=== PATIENT | female | born 2000 | race Caucasian/White ===

== ENCOUNTER 2024-05-22 06:28 | Emergency (ER) | payer OTHER ==
--- OUTSIDE RECORDS SUMMARY | 2024-05-22 06:30 | XMS REPORT | Continuity of Care Document ---
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 Name Role Phone [email or web address]_Kadiyala_S Attending Clinician Unavaila ble [email or web address]_Kadiyala_S Admitting Clinician Unavaila ble Social History Smoking Status Start Date Stop Date Source [facility] Vital Signs Vital Name Observation Time Observation Value Comments S ource BP Systolic 2024-01-31 00:00:00 126 mm[Hg] [facility] BP Diastolic 2024-01-31 00:00:00 72 mm[Hg] [facility] BMI (Body Mass Index) 2024-01-31 00:00:00 21.9 kg/m2 [facility] Body Weight 2024-01-31 00:00:00 131.4 [lb_av] [facility] Height 2024-01-31 00:00:00 65 [in_i] [facility] Encounters Start Date/Time End Date/Time Encounter Type Admission Type Attending Clinicians Care Facility Care Department Encounter ID Source 2024-01-31 00:00:00 2024-01-31 00:00:00 GEORGE HernandezP: [address], [place] [address] , Ph. [facility] - GC_GCBZW_Martha [facility]* [id number] [facility] 2023-05-29 00:00:00 2023-05-29 00:00:00 Outpatient GC_GCBZW_Ka diyala_S [facility] [id number] [facility]
[2024-05-22 07:05] LABS: Absolute Eosinophils 0.4 K/uL (0-0.5); Absolute Lymphocytes (CBC) 2.2 K/uL (0.7-4.9); Absolute Monocytes 0.6 K/uL (0.1-1.3); Absolute Neutrophil 4.9 K/uL (1.8-8.0); Basophils % 0.3 % (0-1.3); Eosinophils % 5.5 % (0-4.4); Hematocrit 40.2 % (36.0-45.0); Hemoglobin 13.7 g/dL (12.0-15.0); MCH 30.9 pg (27.0-35.0); MPV 7.6 fL (7.6-11.3); Monocytes % 7.1 % (3.3-12.3); Neutrophils % 60.1 % (41.7-73.7); Platelets 234 thou/uL (152-406); RBC Red Blood Cell Count 4.42 M/uL (3.86-4.86); Red Cell Distribution Width 12.6 % (12.1-15.2)
[2024-05-22 07:20] LABS: Anion Gap 6.2 mEq/L (5.0-15.0); BUN Blood Urea Nitrogen 12 mg/dL (7-18); Bicarbonate 28 mEq/L (21-32); Glomerular Filtration Rate 135 ml/min (=/>90); Glucose Level 96 mg/dL (74-106); Potassium 3.2 mEq/L (3.5-5.1); Sodium Level 138 mEq/L (136-145)
[2024-05-22 07:21] LABS: Troponin High Sensitivity < 3.0 pg/mL (<58.9)
--- NOTE | 2024-05-22 08:04 | RAD REPORT ---
EXAMINATION: ONE VIEW CHEST XR CLINICAL INDICATION: Female, 24 years old.,CHEST PAIN TECHNIQUE: Frontal chest projection is submitted. Examination is limited by patient positioning and t echnique. COMPARISON: No prior exam. FINDINGS: The lungs are well inflated and clear. No pneumothorax or sizable effusion. The heart is normal in s ize. IMPRESSION: No acute intrathoracic abnormalities.
--- NOTE | 2024-05-22 08:26 | ER ---
Nurse's Notes [facility] Name: Mojgan Meza Age: 24 yrs Sex: Female : 2000 Arrival Date: 05/22/2024 Time: 06:28 Bed 4 Private MD: Diagnosis: Chest pain, unspecified;Paresthesia of skin;Hypokalemia Presentation: 05/22 06:43 Chief complaint: Patient states: states she was at work sitting and started to al5 experience sharp right sided chest pain along with R arm shooting pain, numbness, and tingling. Coronavirus screen: At this time, the client does not indicate any symptoms associated with coronavirus-19. Ebola Screen: No symptoms or risks identified at this time. Initial Sepsis Screen: Does the patient meet any 2 criteria? No. Patient's initial sepsis screen is negative. Does the patient have a suspected source of infection? No. Patient's initial sepsis screen is negative. Risk Assessment: Do you want to hurt yourself or someone else? Patient reports no desire to harm self or others. Onset of symptoms was May 22, 2024. 06:43 Method Of Arrival: Ambulatory al5 06:43 Acuity: FRANCES 2 al5 Triage Assessment: 06:45 General: Appears in no apparent distress. Behavior is calm, cooperative. Pain: al5 Complains of pain in anterior aspect of right upper chest and right breast Pain radiates to right arm Pain currently is 7 out of 10 on a pain scale. EENT: No signs and/or symptoms were reported regarding the EENT system. Neuro: Level of Consciousness is awake, alert, obeys commands, Oriented to person, place, time, situation. Cardiovascular: Capillary refill < 3 seconds Patient's skin is warm and dry. Cardiovascular: Reports chest pain, Rhythm is sinus rhythm. Respiratory: Airway is patent Respiratory effort is even, unlabored, Respiratory pattern is regular, symmetrical. GI: No signs and/or symptoms were reported involving the gastrointestinal system. : No signs and/or symptoms were reported regarding the genitourinary system. Derm: Skin is intact, Skin is pink, warm \T\ dry. normal. Musculoskeletal: No signs and/or symptoms reported regarding the musculoskeletal system. Historical: - Allergies: 06:45 No Known Allergies; al5 - PMHx: 06:45 None; al5 - PSHx: 06:45 Myringotomy and insertion of tympanic ventilation tube; Adenoid excision; al5 - Immunization history:: Adult Immunizations up to date. - Infectious Disease History:: Denies. - Social history:: Smoking status: Reported history of juuling and/or vaping. Screenin:47 [facility] ED Fall Risk Assessment (Adult) History of falling in the last 3 months, al5 including since admission No falls in past 3 months (0 pts) Confusion or Disorientation No (0 pts) Intoxicated or Sedated No (0 pts) Impaired Gait No (0 pts) Mobility Assist Device Used No (0 pt) Altered Elimination No (0 pt) Score/Fall Risk Level 0 - 2 = Low Risk Oriented to surroundings, Maintained a safe environment, Hourly rounding (assess needs \T\ fall precautionary measures) done. Abuse screen: Denies threats or abuse. Denies injuries from another. Nutritional screening: No deficits noted. Tuberculosis screening: No symptoms or risk factors identified. Assessment: 06:46 Reassessment: see triage assessment. Pain: Pain began 1 hour ago. al5 07:19 Reassessment: Patient appears in no apparent distress at this time. No changes from kc6 previously documented assessment. Patient and/or family updated on plan of care and expected duration. Pain level reassessed. Patient is alert, oriented x 3, equal unlabored respirations, skin warm/dry/pink. 08:11 Reassessment: Patient appears in no apparent distress at this time. No changes from kc6 previously documented assessment. Patient and/or family updated on plan of care and expected duration. Pain level reassessed. Patient is alert, oriented x 3, equal unlabored respirations, skin warm/dry/pink. Vital Signs: 06:43 BP 132 / 91; Pulse 60; Resp 16; Temp 98.1; Pulse Ox 100% on R/A; Weight 60.78 kg; al5 Height 5 ft. 5 in. ; Pain 7/10; 07:19 BP 108 / 70; Pulse 66; Resp 16 S; Pulse Ox 100% on R/A; kc6 08:11 BP 98 / 64; Pulse 69; Resp 18 S; Pulse Ox 98% on R/A; kc6 06:43 Body Mass Index 22.30 (60.78 kg, 165.1 cm) al5 06:43 Pain Scale: Adult al5 ED Course: 06:32 Patient arrived in ED. jj6 06:33 Juventino Barros DO is Attending Physician. ms3 06:45 Triage completed. al5 06:46 Arm band placed on right wrist. Patient placed in the treatment room, on a stretcher. al5 EKG completed in triage. Results shown to MD. 06:47 Willa Grissom, FARRUKH is Primary Nurse. al5 06:47 Patient has correct armband on for positive identification. Bed in low position. Call al5 light in reach. Side rails up X 1. Provided Education on: plan of care. Client placed on continuous cardiac and pulse oximetry monitoring. NIBP monitoring applied. resp therapist on. 06:47 No provider procedures requiring assistance completed. Patient maintains SpO2 al5 saturation greater than 95% on room air. 06:59 Attending Physician role handed off by Juventino Barros DO rt 06:59 Elmer Adams MD is Attending Physician. rt 07:00 Report received from FARRUKH Crouch. kc6 07:00 Door closed. Noise minimized. Lights dimmed. Warm blanket given. Pillow given. kc6 07:02 XRAY Chest (1 view) In Process Unspecified. EDMS 08:46 IV discontinued, intact, bleeding controlled, No redness/swelling at site. Pressure kc6 dressing applied. Administered Medications: 08:46 Drug: Potassium PO Effervescent Tablet 50 mEq PO once; dissolve in 4 ounces of water or kc6 juice Route: PO; Medication: 06:47 VIS not applicable for this client. al5 Outcome: 08:25 Discharge ordered by MD. rt 08:46 Discharged to home ambulatory, with family, kc6 08:46 Condition: good 08:46 Discharge instructions given to patient, Instructed on discharge instructions, follow up and referral plans. Demonstrated understanding of instructions, follow-up care, 08:46 Patient left the ED. kc6 Signatures: Dispatcher [employer] EDMS Juventino Barros DO DO ms3 Gillian Mercado jj6 Sharri Dacosta RN RN kc6 Elmer Adams MD MD rt Willa Grissom RN RN al5
--- NOTE | 2024-05-22 08:26 | EDPHYS ---
Physician Documentation [facility] Name: Mojgan Meza Age: 24 yrs Sex: Female : 2000 Arrival Date: 05/22/2024 Time: 06:28 Bed 4 Private MD: ED Physician Elmer Adams HPI: 05/22 06:48 This 24 yrs old Female presents to ER via Ambulatory with complaints of Chest Pain, ms3 Numbness Of Arm. 06:48 24-year-old female with no past medical history presents to the emergency department ms3 for right sharp chest pain that began while at work this morning. Patient states the pain then traveled to her right arm. Patient states she is having right arm tingling. She rates her pain a 7/10. Patient denies nausea, vomiting, shortness of breath. She denies any alleviating or inciting factors.. Historical: - Allergies: 06:45 No Known Allergies; al5 - PMHx: 06:45 None; al5 - PSHx: 06:45 Myringotomy and insertion of tympanic ventilation tube; Adenoid excision; al5 - Immunization history:: Adult Immunizations up to date. - Infectious Disease History:: Denies. - Social history:: Smoking status: Reported history of juuling and/or vaping. ROS: 06:48 Constitutional: Negative for fever, and chills. ms3 06:48 Respiratory: Negative for shortness of breath, cough, wheezing, and pleuritic chest pain, Abdomen/GI: Negative for abdominal pain, nausea, vomiting, diarrhea, and constipation, 06:48 Cardiovascular: Positive for chest pain, 06:48 MS/extremity: Positive for pain, paresthesias, of the right arm, Exam: 06:48 Constitutional: This is a well developed, well nourished patient who is awake, alert, ms3 and in no acute distress. Chest/axilla: Normal chest wall appearance and motion. Nontender with no deformity. Cardiovascular: Regular rate and rhythm with a normal S1 and S2. No gallops, murmurs, or rubs. Normal PMI, no JVD. No pulse deficits. Respiratory: Lungs have equal breath sounds bilaterally, clear to auscultation and percussion. No rales, rhonchi or wheezes noted. No increased work of breathing, no retractions or nasal flaring. Abdomen/GI: Soft, non-tender, with normal bowel sounds. No distension or tympany. No guarding or rebound. No evidence of tenderness throughout. Skin: Warm, dry with normal turgor. Normal color with no rashes, no lesions, and no evidence of cellulitis. MS/ Extremity: Pulses equal, no cyanosis. Neurovascular intact. Full, normal range of motion. 06:48 ECG was reviewed by the Attending Physician. ms3 Vital Signs: 06:43 BP 132 / 91; Pulse 60; Resp 16; Temp 98.1; Pulse Ox 100% on R/A; Weight 60.78 kg; al5 Height 5 ft. 5 in. ; Pain 7/10; 07:19 BP 108 / 70; Pulse 66; Resp 16 S; Pulse Ox 100% on R/A; kc6 08:11 BP 98 / 64; Pulse 69; Resp 18 S; Pulse Ox 98% on R/A; kc6 06:43 Body Mass Index 22.30 (60.78 kg, 165.1 cm) al5 06:43 Pain Scale: Adult al5 MDM: 06:44 Medical Screening Exam initiated ms3 06:48 Differential diagnosis: abnormal EKG, pneumothorax, Paresthesias versus electrolyte ms3 abnormality. 06:59 Transition of care: After a detail discussion of the patient's case, care is ms3 transferred to Elmer Adams MD. 08:27 HEART Score: History: Slightly Suspicious (0), ECG: Normal (0), Age: < or = 45 years rt (0), Risk Factors: No Risk Factors Known (0), Troponin: < or = 1 x Normal Limit (0), Total Score = 0. Data reviewed: vital signs, nurses notes, lab test result(s), EKG, radiologic studies. Consideration of Admission/Observation Escalation of care including admission/observation considered. Low heart score, very low suspicion for acute coronary syndrome, CVA, TIA. Patient does not require admission at this time. Patient stable for outpatient care with PCP, return precautions discussed.. I considered the following discharge prescriptions or medication management in the emergency department Medications were administered in the Emergency Department. See MAR. Independent interpretation of the following test(s) in the Emergency Department X-Ray: My interpretation is No edema seen on my interpretation of x-ray images. Test considered but Not performed: CT: Patient has no focal neurologic deficits, no risk factors for acute CVA, believe risk is low for acute CVA clinically, do not believe that advanced neuroimaging is indicated at this time.. Counseling: I had a detailed discussion with the patient and/or guardian regarding the historical points, exam findings, and any diagnostic results supporting the discharge/admit diagnosis, lab results, radiology results, the need for outpatient follow up, to return to the emergency department if symptoms worsen or persist or if there are any questions or concerns that arise at home. Response to treatment: the patient's symptoms have mildly improved after treatment. 05/22 06:43 Order name: Basic Metabolic Panel; Complete Time: 07:22 ms3 05/22 06:43 Order name: CBC with Diff; Complete Time: 07:21 ms3 05/22 06:43 Order name: Troponin HS; Complete Time: 07:22 ms3 05/22 06:43 Order name: XRAY Chest (1 view); Complete Time: 08:09 ms3 05/22 06:43 Order name: EKG; Complete Time: 06:44 ms3 05/22 06:43 Order name: Cardiac monitoring; Complete Time: 07:05 ms3 05/22 06:43 Order name: EKG - Nurse/Tech; Complete Time: 06:47 ms3 05/22 06:43 Order name: IV Saline Lock; Complete Time: 07:05 ms3 05/22 06:43 Order name: Labs collected and sent; Complete Time: 07:05 ms3 05/22 06:43 Order name: O2 Per Protocol; Complete Time: 06:48 ms3 05/22 06:43 Order name: O2 Sat Monitoring; Complete Time: 06:48 ms3 EC:48 Rate is 69 beats/min. Rhythm is regular. QRS [place] is Normal. [place] interval is normal. QRS ms3 interval is normal. Clinical impression: Normal ECG. Interpreted by me. Reviewed by me. Administered Medications: 08:46 Drug: Potassium PO Effervescent Tablet 50 mEq PO once; dissolve in 4 ounces of water or kc6 juice Route: PO; Disposition Summary: 05/22/24 08:25 Discharge Ordered Notes: Location: Home rt Problem: new rt Symptoms: have improved rt Condition: Stable rt Diagnosis - Chest pain, unspecified rt - Paresthesia of skin rt - Hypokalemia rt Followup: rt - With: Private Physician - When: 2 - 3 days - Reason: Discharge Instructions: - Discharge Summary Sheet rt - Nonspecific Chest Pain, Adult rt - Potassium Content of Foods rt - Paresthesia rt Forms: - Medication Reconciliation Form rt - Antibiotic Education rt - Prescription Opioid Use rt - Patient Portal Instructions rt - Leadership Thank You Letter rt Signatures: Dispatcher [employer] EDMS Barros Juventino DO ms3 Sharri Dacosta RN RN kc6 Elmer Adams MD MD rt Willa Grissom RN RN al5 Corrections: (The following items were deleted from the chart) 06:44 06:44 BASIC METABOLIC PANEL+C.LAB.BRZ ordered. EDMS EDMS 06:44 06:44 CBC+H.LAB.BRZ ordered. EDMS EDMS 06:44 06:44 Troponin High Sensitivity+C.LAB.BRZ ordered. EDMS EDMS
[2024-05-22] MEDS ORDERED: POTASSIUM 25 MEQ EFFERV TAB ONE (08:41)
[2024-05-22 10:38] VITALS: TEMP 98.1
[2024-05-22 10:40] VITALS: BP 98/64; O2SAT 98
--- NOTE | 2024-05-23 12:54 | EKG ---
Test Date: 2024-05-22 Test Time: 06:39:31 Production Superintendent: JESU MEASUREMENT RESULTS: Intervals: Rate: 69 OH: 150 QRSD: 76 QT: 384 QTc: 411 Ethel: P: 56 OH: 150 QRS: 56 T: 40 INTERPRETIVE STATEMENTS: Normal sinus rhythm Normal ECG Compared to ECG 11/04/2018 13:18:25 No significant changes Electronically Signed On 05-23-24 12:50:41 CDT by Ashish Arambula
== END 2024-05-22 08:46 | disposition home or self-care (01) ==
LOC: ER 06:28
DX: R07.9 Chest pain, unspecified (principal); R20.2 Paresthesia of skin; E87.6 Hypokalemia
CPT/HCPCS: 36415; 71045; 80048; 84484; 85025; 93005; 99284

== ENCOUNTER 2024-08-20 11:02 | Emergency (ER) | payer OTHER ==
--- OUTSIDE RECORDS SUMMARY | 2024-08-20 11:04 | XMS REPORT | Continuity of Care Document ---
Author Name Unknown Address [address] [place] [address] [address] th[address] Address [address] [place] [address] 495 [place] [address] Care Team Providers Care Senior Data Scientist Name Role Phone [email or web address]_Kadiyala_S Attending Clinician Unavaila ble [email or web address]_Kadiyala_S Admitting Clinician Unavaila ble Social History Smoking Status Start Date Stop Date Source Former Smoker [facility] Vital Signs Vital Name Observation Time Observation Value Comments S ource BP Systolic 2024-01-31 00:00:00 126 mm[Hg] [facility] BP Diastolic 2024-01-31 00:00:00 72 mm[Hg] [facility] BMI (Body Mass Index) 2024-01-31 00:00:00 21.9 kg/m2 [facility] Weight 2024-01-31 00:00:00 131.4 [lb_av] [facility] Height 2024-01-31 00:00:00 65 [in_i] [facility] Encounters Start Date/Time End Date/Time Encounter Type Admission Type Attending Clinicians Care Facility Care Department Encounter ID Source 2024-01-31 00:00:00 2024-01-31 00:00:00 EVER Hernandez: [address], [place] [address] , Ph. [facility] - GC_GCBZW_Martha [facility]* [id number] [facility] 2023-05-29 00:00:00 2023-05-29 00:00:00 Outpatient [email or web address]_Ka diyala_S [facility] [id number] [facility]
[2024-08-20 12:00] LABS: Specific Gravity 1.005 (1.005-1.030)
[2024-08-20 12:04] LABS: Renal Epithelial <5 /HPF (None Seen); Specific Gravity 1.005 (1.005-1.030); Sqamous Epithelial <5 /HPF (None Seen); Urine Bacteria <20 /HPF (<20); Urine Bilirubin NEGATIVE (Negative); Urine Blood 3+ (Negative); Urine Clarity Extremely Turbid (Clear); Urine Color Colorless (Yellow); Urine Culture Reflex Order REFLEXED; Urine Glucose NEGATIVE (Negative); Urine Ketones NEGATIVE (Negative); Urine Microscopic Reflex YN ORDER UMIC; Urine Nitrite NEGATIVE (Negative); Urine Protein NEGATIVE (Negative); Urine RBC <5 /HPF (None Seen); Urine Urobilinogen Normal (Normal); Urine WBC >50 /HPF (<5)
--- NOTE | 2024-08-20 12:08 | ER ---
Nurse's Notes [facility] Name: Mojgan Meza Age: 24 yrs Sex: Female : 2000 Arrival Date: 08/20/2024 Time: 11:02 Bed 11 Private MD: Diagnosis: UTI/ Urinary tract infection, site not specified Presentation: 08/20 11:27 Chief complaint: Patient states: she has been having cloudy urine, doesn't feel like ap3 she is emptying her bladder all the way and urinary frequency for 2 days. Coronavirus screen: At this time, the client does not indicate any symptoms associated with coronavirus-19. Ebola Screen: No symptoms or risks identified at this time. Initial Sepsis Screen: Does the patient meet any 2 criteria? No. Patient's initial sepsis screen is negative. Does the patient have a suspected source of infection? No. Patient's initial sepsis screen is negative. Risk Assessment: Do you want to hurt yourself or someone else? Patient reports no desire to harm self or others. Onset of symptoms was August 18, 2023. 11:27 Method Of Arrival: Ambulatory ap3 11:27 Acuity: FRANCES 3 ap3 Triage Assessment: 11:29 General: Appears in no apparent distress. Behavior is calm, cooperative, appropriate ap3 for age. Pain: Complains of pain in groin Pain currently is 7 out of 10 on a pain scale. Aggravated by urinating. Neuro: Level of Consciousness is awake, alert, obeys commands, Oriented to person, place, time, situation, Appropriate for age Speech is normal. Cardiovascular: Patient's skin is warm and dry. Respiratory: Airway is patent Respiratory effort is even, unlabored, Respiratory pattern is regular, symmetrical. : Reports burning with urination, pain with urination, urgency, urinary frequency. 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 Flu vaccine is not up to date. - Infectious Disease History:: Denies. - Social history:: Smoking status: Reported history of juuling and/or vaping. Screenin:30 [facility] ED Fall Risk Assessment (Adult) History of falling in the last 3 months, ap3 including since admission No falls in past 3 months (0 pts) Confusion or Disorientation No (0 pts) Intoxicated or Sedated No (0 pts) Impaired Gait No (0 pts) Mobility Assist Device Used No (0 pt) Altered Elimination No (0 pt) Score/Fall Risk Level 0 - 2 = Low Risk Oriented to surroundings, Maintained a safe environment, Educated pt \T\ family on fall prevention, incl call for assistance when getting out of bed, Assessed \T\ reinforced patient's understanding of fall precautions, Hourly rounding (assess needs \T\ fall precautionary measures) done, Used ambulatory aids as needed (educated on \T\ assisted with), Used gait belt as appropriate. Abuse screen: Denies threats or abuse. Nutritional screening: No deficits noted. Tuberculosis screening: No symptoms or risk factors identified. Vital Signs: 11:27 BP 108 / 60; Pulse 69; Resp 18; Temp 98.7; Pulse Ox 100% ; Weight 58.97 kg; Height 5 ap3 ft. 5 in. ; Pain 7/10; 11:27 Body Mass Index 21.63 (58.97 kg, 165.1 cm) ap3 11:27 Pain Scale: Adult ap3 ED Course: 11:07 Patient arrived in ED. ra3 11:12 Victoriano Bejarano FNP-C [facility]. [facility] 11:12 Kenneth Kim MD is Attending Physician. dr5 11:28 Triage completed. ap3 11:30 Arm band placed on right wrist. ap3 11:50 Urine collected: clean catch specimen. ap3 11:50 Test, Urine Sent. ap3 11:50 Urinalysis w/ reflexes Sent. ap3 12:17 Patient has correct armband on for positive identification. Adult w/ patient. Provided ap3 Education on: discharge instructions . 12:17 No provider procedures requiring assistance completed. Patient did not have IV access ap3 during this emergency room visit. Administered Medications: No medications were administered Medication: 12:17 VIS not applicable for this client. ap3 Outcome: 12:07 Discharge ordered by . dr5 12:17 Discharged to home ambulatory, ap3 12:17 Condition: good 12:17 Discharge instructions given to patient, Instructed on discharge instructions, follow up and referral plans. medication usage, Demonstrated understanding of instructions, follow-up care, medications, Prescriptions given X 1, 12:17 Patient left the ED. ap3 Signatures: Willa Yang RN RN ap3 Abril Nevarez ra3 Victoriano Bejarano, FRESH MEAT GRADER-C FRESH MEAT GRADER-Cdr5
--- NOTE | 2024-08-20 12:08 | EDPHYS ---
Physician Documentation [facility] Name: Mojgan Meza Age: 24 yrs Sex: Female : 2000 Arrival Date: 08/20/2024 Time: 11:02 Bed 11 Private MD: ED Physician Kenneth Kim HPI: 08/20 12:10 This 24 yrs old Female presents to ER via Ambulatory with complaints of dr5 Urinary Problem. 12:10 Onset: The symptoms/episode began/occurred acutely. Patient is a 24-year-old female dr5 with no past medical history coming in with urinary tract infection such as dysuria and urgency this been going on for 2 days. Patient reports she has been increasing her fluids and cranberry juice with mild relief. Patient reports that she has not had a urinary tract infection for the past. 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 Flu vaccine is not up to date. - Infectious Disease History:: Denies. - Social history:: Smoking status: Reported history of juuling and/or vaping. ROS: 12:10 Constitutional: as per hpi dr5 Exam: 12:10 Constitutional: This is a well developed, well nourished patient who is awake, alert, dr5 and in no acute distress. Head/Face: Normocephalic, atraumatic. Eyes: Pupils equal round and reactive to light, extra-ocular motions intact. Lids and lashes normal. Conjunctiva and sclera are non-icteric and not injected. Cornea within normal limits. Periorbital areas with no swelling, redness, or edema. ENT: Nares patent. No nasal discharge, no septal abnormalities noted. Tympanic membranes are normal and external auditory canals are clear. Oropharynx with no redness, swelling, or masses, exudates, or evidence of obstruction, uvula midline. Mucous membranes moist. Chest/axilla: Normal chest wall appearance and motion. Nontender with no deformity. No lesions are appreciated. Cardiovascular: Regular rate and rhythm with a normal S1 and S2. Normal PMI, no JVD. No pulse deficits. Respiratory: Lungs have equal breath sounds bilaterally, clear to auscultation. No rales, rhonchi or wheezes noted. No increased work of breathing, no retractions or nasal flaring. Abdomen/GI: Soft, non-tender, non-distended Back: No spinal tenderness. No costovertebral tenderness. Full range of motion. Skin: Warm, dry with normal turgor. Normal color with no rashes, no lesions, and no evidence of cellulitis. MS/ Extremity: Pulses equal, no cyanosis. Neurovascular intact. Full, normal range of motion. Neuro: Awake and alert, GCS 15, oriented to person, place, time, and situation. Cranial nerves II-XII grossly intact. Motor strength 5/5 in all extremities. Sensory grossly intact. Cerebellar exam normal. Normal gait. Vital Signs: 11:27 BP 108 / 60; Pulse 69; Resp 18; Temp 98.7; Pulse Ox 100% ; Weight 58.97 kg; Height 5 ap3 ft. 5 in. ; Pain 7/10; 11:27 Body Mass Index 21.63 (58.97 kg, 165.1 cm) ap3 11:27 Pain Scale: Adult ap3 MDM: 11:13 Medical Screening Exam initiated dr5 12:10 Differential diagnosis: viral Infection, bacterial infection, UTI. Data reviewed: vital dr5 signs, nurses notes. Historians other than the Patient: Parent: Mother. Care significantly affected by the following Social Determinants of Health: Poor access to healthcare and/or lack of insurance, Poor access to transportation, Problems related to employment. Counseling: I had a detailed discussion with the patient and/or guardian regarding the historical points, exam findings, and any diagnostic results supporting the discharge/admit diagnosis, the presence of at least one elevated blood pressure reading (>120/80) during this emergency department visit, the need for outpatient follow up, for definitive care, a family practitioner, to return to the emergency department if symptoms worsen or persist or if there are any questions or concerns that arise at home. ED course: Urinary tract infection noted on UA. Will start patient on Keflex twice a day for 10 days. All questions answered. Recommended continuing alternating Tylenol Motrin as needed for pain.. 08/20 11:25 Order name: Urinalysis w/ reflexes; Complete Time: 12:07 dr5 08/20 11:25 Order name: Test, Urine; Complete Time: 12:01 dr5 08/20 12:09 Order name: Urine Culture EDIN Administered Medications: No medications were administered Disposition Summary: 08/20/24 12:07 Discharge Ordered Notes: Location: Home dr5 Condition: Stable dr5 Diagnosis - UTI/ Urinary tract infection, site not specified dr5 Followup: dr5 - With: Emergency Department - When: As needed - Reason: Worsening of condition Followup: dr5 - With: Private Physician - When: 1 - 2 days - Reason: Recheck today's complaints, Continuance of care, Re-evaluation by your physician Discharge Instructions: - Discharge Summary Sheet dr5 - Urinary Tract Infection, Adult, [id number] dr5 Forms: - Medication Reconciliation Form dr5 - Antibiotic Education dr5 - Patient Portal Instructions dr5 - Leadership Thank You Letter dr5 Prescriptions: - Cephalexin 500 mg Oral Capsule - take 1 capsule ORAL route every 12 hours for 10 days; 20 capsule; Refills: 0, dr5 Product Selection Permitted Addendum: 08/23/2024 07:33 Co-signature as Attending Physician, Kenneth Kim MD I agree with the assessment and c estrada plan of care. Signatures: Dispatcher [employer] Kenneth Shultz MD MD cha Prokisch, Amanda, RN RN ap3 Victoriano Bejarano, DOPE FIRER-C DOPE FIRER-Cdr5
[2024-08-20 12:22] VITALS: BP 108/60; TEMP 98.7; O2SAT 100
== END 2024-08-20 12:17 | disposition home or self-care (01) ==
LOC: ER 11:02
DX: N39.0 Urinary tract infection, site not specified (principal)
CPT/HCPCS: 81001; 81025; 87077; 87086; 87088; 87186; 99283